=== PATIENT | female | born 1990 | race Caucasian/White ===

== ENCOUNTER 2019-06-16 12:00 | Outpatient (CLI) | payer OTHER, SELFPAY ==
[2019-06-16 12:51] LABS: Hematocrit 42.5 % (37.0-47.0); Hemoglobin 14.2 g/dL (12.0-15.0); Mean Corpuscular HGB Conc 33.4 g/dl (32-36); Mean Corpuscular Hemoglobin 29.8 pg (26-34); Mean Corpuscular Volume 89.3 fl (80-100); Mean Platelet Volume 9.8 fl (7.4-10.4); Platelet Count Result 286 k/mm3 (150-375); Red Blood Count 4.76 M/mm3 (4.2-5.4); White Blood Count 5.5 K/mm3 (4.5-10.0)
[2019-06-16 13:07] LABS: Blood Urea Nitrogen 15 mg/dL (7-17); Calcium 9.6 mg/dL (8.4-10.2); Carbon Dioxide 27 mmol/L (22-30); Chloride 101 mmol/L (98-107); Estimated Glomerular Filt Rate > 60; Glucose 73 mg/dL (65-105); Potassium 4.3 mmol/L (3.4-5.0); Sodium 138 mmol/L (137-145)
[2019-06-16 13:37] LABS: Thyroid Stimulating Hormone 0.079 uIU/mL (0.465-4.680)
[2019-06-16 13:51] LABS: Vitamin D 25 Hydroxy 44.3 ng/mL
== END 2019-06-16 12:01 | disposition home or self-care (01) ==
PROVIDERS: PCP Family Medicine; Visit Provider Nurse Practitioner Family
DX: R79.89 Other specified abnormal findings of blood chemistry (principal); R53.83 Other fatigue; F41.9 Anxiety disorder, unspecified
CPT/HCPCS: 36415; 80048; 82306; 84443; 85027

== ENCOUNTER 2019-07-16 14:52 | Outpatient (CLI) | payer OTHER, SELFPAY ==
--- NOTE | ~2019-07-16 | US_ITS ---
EXAMINATION: US thyroid EXAM DATE: 07/16/2019 15:38 INDICATION: Goiter. TECHNIQUE: Multiple grayscale and Doppler images of the thyroid were obtained (by a technologist who performed the scan) and subsequently reviewed. Individual nodules may be reported using TI-RADS syst em as designated by the 2017 ACR White Paper TI-RADS committee. There is no prior study for comparis on. FINDINGS: Right thyroid lobe measures 4.8 x 1.1 x 1.5 cm, the left measuring 4.3 x 1.0 x 1.2 cm. No focal nodul es identified. Expected amount of vascularity. No regional lymphadenopathy. IMPRESSION: 1. Unremarkable thyroid ultrasound exam. Reviewed, dictated and finalized at location A. [employer] NURSE MANAGER
== END 2019-07-16 14:53 | disposition home or self-care (01) ==
PROVIDERS: PCP Nurse Practitioner Family; Visit Provider Nurse Practitioner Family
DX: R79.89 Other specified abnormal findings of blood chemistry (principal); E04.9 Nontoxic goiter, unspecified
CPT/HCPCS: 76536

== ENCOUNTER 2020-02-11 09:21 | Outpatient (CLI) | payer OTHER, SELFPAY ==
[2020-02-11 10:33] LABS: Beta HCG Quantitative 5.08 mIU/ML
== END 2020-02-11 09:22 | disposition home or self-care (01) ==
LOC: ANHLAB 09:24
PROVIDERS: PCP Nurse Practitioner Family; Visit Provider Obstetrics & Gynecology
DX: Z34.90 Encounter for supervision of normal pregnancy, unspecified, unspecified trimester (principal); Z3A.00 Weeks of gestation of pregnancy not specified
CPT/HCPCS: 36415; 84702

== ENCOUNTER 2020-08-10 15:32 | Outpatient (CLI) | payer OTHER, SELFPAY | END 2020-08-10 15:33 | disposition home or self-care (01) | LOC: ANHCOVIDVC 15:32 | PROVIDERS: PCP Nurse Practitioner Family; Visit Provider Family Medicine | DX: Z23 Encounter for immunization (principal) | CPT/HCPCS: 0001A; 91300 ==

== ENCOUNTER 2020-08-31 15:29 | Outpatient (CLI) | payer OTHER, SELFPAY | END 2020-08-31 15:30 | disposition home or self-care (01) | LOC: ANHCOVIDVC 15:29 | PROVIDERS: PCP Nurse Practitioner Family | DX: Z23 Encounter for immunization (principal) | CPT/HCPCS: 0002A; 91300 ==

== ENCOUNTER 2021-10-14 11:00 | Outpatient (CLI) | payer OTHER, SELFPAY ==
--- NOTE | ~2021-10-14 | CT_ITS ---
EXAMINATION: CT diagnostic chest w con DATE: 10/14/2021 11:30 INDICATION: Solitary pulmonary nodule TECHNIQUE: Transaxial computed tomographic images of the chest were obtained after the administration of 75 cc of Omnipaque 300 intravenous contrast. The dose-length product (DLP) was 143.35 mGy-cm. Ite rative reconstruction was used. COMPARISON: None FINDINGS: There are multiple (greater than 10) pulmonary nodules in the lungs, predominantly in the l ower lobes. The largest measures 8 mm in the superior segment of the left lower lobe. The lungs are f ree of focal airspace opacities. There is no pleural effusion or pneumothorax. No pathologically enla rged thoracic lymph nodes are identified. The heart size is normal. There is a 2.4 cm hemangioma of t he right hepatic lobe. A hemangioma is also noted in the T7 vertebral body. IMPRESSION: 1. Multiple pulmonary nodules measuring up to 8 mm which could be old granulomatous disease or a stat ically disease. Comparison with prior imaging is recommended to assess for interval change and to det ermine next step in evaluation. Reviewed, dictated and finalized at location B. IMPRESSION: 1. Multiple pulmonary nodules measuring up to 8 mm which could be old granuloma tous disease or a statically disease. Comparison with prior imaging is recommen ded to assess for interval change and to determine next step in evaluation.
== END 2021-10-14 11:01 | disposition home or self-care (01) ==
PROVIDERS: PCP Nurse Practitioner Family; Visit Provider Nurse Practitioner Family
DX: R91.8 Other nonspecific abnormal finding of lung field (principal)
CPT/HCPCS: 71260; Q9967

== ENCOUNTER → 2021-12-01 11:30 | Outpatient (CLI) | payer OTHER, SELFPAY ==
--- NOTE | ~2021-12-01 | XR_ITS ---
EXAMINATION: XR chest 2V DATE: 12/01/2021 11:48 INDICATION: Right-sided chest pain post biopsy 2 days prior TECHNIQUE: PA and lateral views of the chest were obtained. COMPARISON: Chest CT dated 10/14/2021 FINDINGS: Calcified right lower lobe nodule consistent with old granulomatous disease. Nodular airspace opaciti es, pulmonary edema, pleural effusion or pneumothorax. The cardiomediastinal silhouette is normal. Vi sualized bones and soft tissues are unremarkable. IMPRESSION: 1. No acute cardiopulmonary disease. Reviewed, dictated and finalized at location B.
== END ==
PROVIDERS: PCP Nurse Practitioner Family; Visit Provider Nurse Practitioner Family
DX: R07.9 Chest pain, unspecified (principal)
CPT/HCPCS: 71046

== ENCOUNTER 2023-01-27 14:44 | Emergency (ER) | payer OTHER, SELFPAY ==
--- NOTE | ~2023-01-27 | XR_ITS ---
EXAMINATION: XR ribs LT 2V INDICATION: Left lower rib pain TECHNIQUE: 3 views of the left ribs were obtained. COMPARISON: 12/01/2021 FINDINGS: There is a nondisplaced anterolateral fracture of the left 10th rib. No additional rib frac ture is identified. The lungs are free of acute opacities. No pleural effusion or pneumothorax. The c ardiomediastinal silhouette is normal. IMPRESSION: 1. Nondisplaced anterolateral fracture of the left seventh rib. Reviewed, dictated and finalized at location F.
--- NOTE | 2023-01-27 14:55 | ED.BACK ---
HPI - Back Pain/Injury General Chief Complaint: Back Pain/Injury Stated Complaint: lt side rib injury Time Seen by Provider: 01/27/23 14:55 Source: patient Mode of arrival: ambulatory Limitations: no limitations History of Present Illness HPI Narrative: Patient is a 33-year-old female that presents with left rib pain after jumping off of a jimmie into water on . Patient states that afternoon it was tender but last night she coughed, felt a pop and has had 8/10 pain since. Patient states it is painful to take deep breaths. Patient has been taking home oxycodone with moderate relief. Denies any difficulty breathing or shortness of breath. Patient is currently undergoing treatment for stage IV melanoma. Related Data Home Medications Medication Instructions Recorded Confirmed alprazolam 0.25 mg tablet 0.25 mg PO PRN PRN Anxiety 01/27/23 01/27/23 levothyroxine 125 mcg tablet 125 mcg PO DAILY 01/27/23 01/27/23 zolpidem 5 mg tablet 5 mg PO DAILY 01/27/23 01/27/23 Allergies Allergy/AdvReac Type Severity Reaction Status Date / Time prochlorperazine Allergy Unknown Verified 01/27/23 15:14 [From Compazine] Review of Systems Review of Systems: All systems reviewed & are unremarkable except as noted in HPI and below Constitutional: Constitutional: Denies body ache(s), Denies chills, Denies fatigue, Denies fever(s), Denies headache(s), Denies malaise and Denies weakness Eyes: Eyes: Denies blurry vision, Denies irritation and Denies loss of vision ENT: Denies otalgia, Denies headache(s), Denies nasal discharge, Denies sinus pain and Denies sore throat Cardiovascular: Cardiovascular: Denies chest pain, Denies irregular heart rhythm and Denies dyspnea Respiratory: Respiratory: Reports pain on inspiration, Reports pain with cough, Denies dyspnea and Reports other (Left rib pain) Gastrointestinal: Gastrointestinal: Denies abdominal pain, Denies melena, Denies hematochezia, Denies diarrhea, Denies nausea and Denies vomiting Musculoskeletal: Musculoskeletal: Denies back pain, Denies myalgias and Denies arthralgias Integumentary/Breasts: Skin/Breast: Denies pruritus and Denies rash Neurologic: Denies headache(s), Denies loss of vision and Denies weakness Psychiatric: Psychiatric: Reports no additional psychiatric complaints Endocrine: Endocrine: Denies fatigue PMFSH Family History Family History Other Cerebrovascular accident Diabetes mellitus Family history of coronary artery disease Family history of lung cancer Family history of malignant neoplasm Family history of malignant neoplasm of ovary Social History Social History Smoking status: Never smoker Alcohol intake: never Comments At time of signature, agree with nursing past medical, surgical, social and family history. There is no relevant family history pertinent to the presenting complaint. Exam Const: General: cooperative, healthy appearing, comfortable, no acute distress and well nourished Nutritional Appearance: well nourished Orientation/consciousness: patient oriented x3 Limitations: no limitations HENMT: Head: normal to inspection, normocephalic and atraumatic Ears: hearing grossly normal bilaterally and external ears normal Face/Nose/Sinus: Normal external nose present, normal facial exam and face symmetric Face and sinus: normal facial exam and face symmetric Mouth: Yes lip normal Eyes: General: appearance normal, both eyes and all related structures Alignment and Position: alignment normal and position normal Periorbital: periorbital findings normal Eyelids: eyelids normal Pupils: Equal, round and reactive pupils present EOM: EOMs intact bilaterally Neck: Neck: normal visual inspection, full ROM and supple Chest: Chest palpation & inspection: normal inspection of the chest, normal palpation of entire chest wall, no crepi
[2023-01-27 15:02] VITALS: BP 121/69; PULSE 81; RESP 18; TEMP 36.6; O2SAT 100
== END 2023-01-27 15:43 | disposition home or self-care (01) ==
PROVIDERS: Emergency Provider Nurse Practitioner Family
DX: S22.32XA Fracture of one rib, left side, initial encounter for closed fracture (principal); X58.XXXA Exposure to other specified factors, initial encounter; E03.9 Hypothyroidism, unspecified; C43.9 Malignant melanoma of skin, unspecified
CPT/HCPCS: 71100; 99213; G0463